=== PATIENT | female | born 1985 | race Caucasian/White ===

== ENCOUNTER 2018-01-19 20:28 | Emergency (ER) | payer OTHER ==
[~2018-01-19] VITALS: Ht 172.7 cm; Wt 117.9 kg
[2018-01-19] MEDS ORDERED: Prednisone50 MG PO (22:25)
== END 2018-01-19 22:36 | disposition home or self-care (01) ==
LOC: ER 20:28
DX: M25.551 Pain in right hip (principal); Z87.891 Personal history of nicotine dependence
CPT/HCPCS: 96372; 99283; J1885